=== PATIENT | female | born 1970 | race Caucasian/White ===

== ENCOUNTER 2020-03-27 14:30 | Outpatient (RCR) | payer OTHER, SELFPAY ==
--- NOTE | 2020-03-05 15:14 | PTOPEVAL ---
PHYSICAL THERAPY EVALUATION AND PLAN OF CARE 03-05-2020 Thank you for referring Skylar Muir to [facility] [place], for the diagnosis of R shoulder tendonitis.? She is scheduled to be seen for therapy? 2 x/week for 4 weeks. Please review, sign, date and return this plan of care ROSEANNA. I agree with and certify that the following plan of care is medically necessary. Referring Physician Date Attending Provider: Dr. 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 Cardiovascular History Hx Hypertension Yes: meds Respiratory History Hx Asthma Yes: rare flare ups Gastrointestinal History Hx Gastrointestinal Disorders No Significant History Genitourinary History Hx Genitourinary Disorders No Significant History Musculoskeletal History Hx Arthritis Yes: hands, back Hx Other Musculoskeletal Disorders Yes: R shoulder chronic pain;B achilles tendonitis; Hematological History Hx Hematological Disorders No Significant History Endocrine History Hx Diabetes Yes: pre- diabetic- monitoring HEENT History Hx HEENT Disorders No Significant History Integumentary History Hx Skin Disorders No Significant History Evaluation Information Problem Diagnosis R shoulder tendinopathy Onset 12-02-2019 Subjective Information gradual increase in shoulder Query Text:As Reported By Patient/ pain; pain is different than Family it was in the past; more weakness and more pain in triceps; previous PT here for shoulder; previous history of torn trapezius ; Diagnostic Tests X-Rays For This Problem No MRI For This Problem No Other Tests For This Problem No Previous Treatments Previous Treatments For This Problem for torn trapezious, over 1 year ago Prior Level of Function Activity Level (Last 3 Months) Occupation painter spray; custom framing- furlough due to COVID Hand Dominance Right Activity of Daily Living Ability Independent Indoor/Home Mobility Independent Community Mobility Independent Stairs Ability Independent Functional Cognition (Planning, Shopping Independent , Taking Medications) Cooking
--- NOTE | 2020-03-25 16:12 | PCPTNOTE ---
Patient did not show up for scheduled appointment this date. Called patient and she stated she lost track of time.
--- NOTE | 2020-04-15 13:50 | PCPTNOTE ---
Patient called & cancelled scheduled appointment this date due to covid concerns.
--- NOTE | 2020-04-15 16:27 | PCPTNOTE ---
Pt called and left message, returned her call---she is doing her HEP and fearful of COVID. Discussed continuing her HEP, stretching her ROM as tolerated--stated she does not have her ROM yet. Discussed after get ROM, then would work on strengthening. She stated she will continue to do her exercises and then when see in May, will get new orders if need to continue PT. She request d/c from PT at this time.
--- NOTE | 2020-04-17 14:04 | PCPTNOTE ---
PHYSICAL THERAPY DISCHARGE 04-17-2020 Attending Provider: Dr. Vicente Kaminski Patient:Skylar Muir Date of :1970 Ms. Muir has received 4 PT sessions, from March 05 to , for the diagnosis of R shoulder tendinitis. She called and I talked with her on 04-15-2020. She expressed concern about COVID and did not want to attend PT. She stated her shoulder is improving, with better motion, but still has a pinch and is weak. Discussed with her and reviewed her HEP, will continue with her HEP and using her arm as tolerated with home tasks. She requested discharge from PT at this time. Skylar reports she has a dr follow up appointment in May. If she still has issues with her shoulder, will get an additional order for PT. The goals were not assessed. Thank you for referring Tootie to [facility]. Please review, sign, date and return this discharge summary ROSEANNA. I have been updated about the patient's current status and I agree with discharge from the above service at this time. Referring Physician Date
== END 2020-04-18 15:31 | disposition home or self-care (01) ==
LOC: ANHPT 14:30
PROVIDERS: PCP Internal Medicine
DX: M75.81 Other shoulder lesions, right shoulder (principal)
CPT/HCPCS: 97110; 97140; 97161

== ENCOUNTER 2020-11-22 14:18 | Outpatient (CLI) | payer OTHER, SELFPAY ==
--- NOTE | ~2020-11-22 | XR_ITS ---
XR chest 2V DATE: 11/22/2020 14:39 INDICATION: Inhaled foreign body (bug) TECHNIQUE: PA and lateral views COMPARISON: None FINDINGS: Normal heart size. No hilar or mediastinal enlargement. No pulmonary infiltrate or consolid ation, pleural effusion or pulmonary vascular congestion or pneumothorax. IMPRESSION: Negative Reviewed, dictated and finalized at location A. IMPRESSION: Negative
== END 2020-11-22 14:19 | disposition home or self-care (01) ==
PROVIDERS: PCP Nurse Practitioner; Visit Provider Nurse Practitioner
DX: T17.808A Unspecified foreign body in other parts of respiratory tract causing other injury, initial encounter (principal)
CPT/HCPCS: 71046

== ENCOUNTER 2023-02-24 13:00 | Outpatient (RCR) | payer OTHER, SELFPAY ==
--- NOTE | 2023-01-20 16:00 | PTOPEVAL1 ---
Assessment and note entered by Derrick Cole Evaluation Information Assessment Status Evaluation Diagnosis left calf strain, dizziness Onset 12/31/22 Subjective Information Pt. reports a few weeks ago she was walking up her steps and felt a pop in the left calf. She reports that she was not functional for a few days , but has improved. She reports that pain can be throughout the calf and deep into the muscle. She reports having a hx of Achilles tendonitis. She reports that pain in the calf is only noticed with walking and standing. She reports that her calf pain is not immediate. She reports that the pain will increase with stairs and short distance walking. She reports that pain is tolerable when it does occur and is able to complete IADL's despite her pain. she reports that her dizziness has been on/off for the past several months. She has had therapy recently with some resolve noted with the [facility] [place]. Pt. reports that it has returned and notices a fullness in her head. She reports having a hx of migraines that may have been the cause of the dizziness. She reports that her ability to walk her dog or walk any signficant distance has been affected by her onset . Reported Pain Level Pain Score 2: Self Report Assessment PT Clinical Summary Pt. is a 52 year old female who enters the clinic with a left calf strain and dizziness. She has hx of BPPV and dizziness symptoms appear less apparent than her current calf pain. She currently presents with dizziness, impaired gait, impaired strength, impaired ROM and pain. Continued skilled PT is indicated in order to improve these areas to allow the pt. to to be able to participate in all IADL's with less pain and less dizziness. Plan of Care Interventions Electrical Stimulation,Gait Training,Hot Pack/Cold Pack,Manual Therapy,Neuro Re-education,Patient/ Caregiver Educati,Therapeutic Activities, Therapeutic Exercise,Self-Care/Home Management PT Services Indicated Yes Treatment Frequency and 2x/week x 10 visits Duration These treatments will address the objective and functional deficits as defined above. The patient will be advanced safely and appropriately in order for the patient to progress towards his/her prior level of function. Additional exercises will be introduced and as well as a comprehensive home exercise program upon discharge, if
--- NOTE | 2023-01-20 16:01 | OPREHPOC ---
Outpatient Therapy Plan of Care This is a Multidisciplinary Plan of Care that may contain components documented by all disciplines (PT, OT, and ST.) PT Problem 1 PT Problem #1 Knowledge Deficit PT Goal 1 Goal Pt. will be independent with a HEP addressing strength and mobility. Target Visit 2 PT Problem 2 PT Problem #2 Impaired Range of Motion PT Goal 1 Goal Pt. will present with 15 degrees active left ankle dorsiflexion with the knee extended. Target Visit 10 PT Problem 3 PT Problem #3 Impaired Gait PT Goal 1 Goal Pt. will present with no deviation in gait upon visual assessment. Target Visit 10 PT Problem 4 PT Problem #4 Impaired Vestibular Syste PT Goal 1 Goal Pt. will deny any episode of dizziness in a 1 week period Target Visit 8 PT Problem 5 PT Problem #5 Impaired Strength PT Goal 1 Goal Pt. will present with ability to complete 10 singel limb heel raises on the left and present with 5/5 bilateral hip abduction strength Target Visit 10
--- NOTE | 2023-02-04 13:27 | PCPTNOTE ---
Mrs. Muir called the clinic stating that she had transportation issues and could not attend treatment on this date.
--- NOTE | 2023-02-11 09:11 | PCPTNOTE ---
Pt cancelled due to illness today.
--- NOTE | 2023-02-15 09:52 | PCPTNOTE ---
Pt. canceled 02/15/23 appointment stating that she was sick.
--- NOTE | 2023-02-22 09:09 | PCPTNOTE ---
Pt. canceled 02/22/23 appointment noting that she is still sick again today.
--- NOTE | 2023-02-24 14:03 | PTOPDC ---
Assessment and note entered by Derrick Cole Discharge Information Assessment Status Evaluation Diagnosis left calf strain, dizziness Onset 12/31/22 Subjective Information Pt. reports that she is no longer experiencing dizziness. She reports that her pain is decreased and only mainly has pain with long periods of walking. She does express concern with going to the beach in the coming weeks, and is fearful that pain will increase with walking through the sand. Reported Pain Level Pain Score 2: Self Report Assessment PT Clinical Summary Pt. has demonstrated improvements in gait, pain reports, strength and ROM. At this time pt. is encouraged to continue with her HEP and will be discharged from our care. Plan of Care PT Services Indicated D/C from PT to an independent HEP
== END 2023-02-24 14:45 | disposition home or self-care (01) ==
LOC: ANHPT 13:00
PROVIDERS: PCP Nurse Practitioner; Visit Provider Orthopaedic Surgery
DX: M79.662 Pain in left lower leg (principal); R42 Dizziness and giddiness
CPT/HCPCS: 97014; 97110; 97112; 97140; 97161; 97530; G0283

== ENCOUNTER 2023-06-29 16:16 | Outpatient (CLI) | payer OTHER, SELFPAY ==
--- NOTE | ~2023-06-29 | US_ITS ---
EXAMINATION: US pelvic complete w TV DATE: 06/29/2023 17:41 INDICATION: Pelvic and perineal pain. TECHNIQUE: Multiple transabdominal and transvaginal sonographic images of the pelvis were obtained. COMPARISON: None. FINDINGS: TRANSABDOMINAL ULTRASOUND: The uterus measures 5.4 x 3.2 x 4.7 cm. There is no free fluid in the pelvis. TRANSVAGINAL ULTRASOUND: The endometrial complex measures 4 mm in thickness. There is a 2.5 cm subserosal fibroid. There is a small nabothian cyst in the cervix. The ovaries are not visualized. IMPRESSION: 1. Uterine fibroid. 2. Ovaries not visualized. Reviewed, dictated and finalized at location A. O COMPUTER DATA PROCESSOR
== END 2023-06-29 16:17 | disposition home or self-care (01) ==
PROVIDERS: PCP Nurse Practitioner; Visit Provider Nurse Practitioner Obstetrics & Gynecology
DX: R10.2 Pelvic and perineal pain (principal); D25.9 Leiomyoma of uterus, unspecified
CPT/HCPCS: 76830; 76856

== ENCOUNTER 2023-07-12 08:55 | Outpatient (CLI) | payer OTHER, SELFPAY ==
--- NOTE | ~2023-07-12 | US_ITS ---
Limited Abdominal Sonogram: Real-time sonographic imaging of the right upper quadrant was performed. Clinical History: Right upper quadrant pain Findings: The liver appears echogenic, with no evidence of mass lesion or bile duct dilatation. Main portal vein demonstrates normal direction of flow. The gallbladder is well distended, and appears no rmal with no evidence of gallstone or wall thickening. The common bile duct measures 4 mm. The visua lized pancreas, aorta, and IVC are unremarkable. Impression: Diffuse fatty infiltration of the liver. Reviewed, dictated and finalized at location M. Impression: Diffuse fatty infiltration of the liver.
== END 2023-07-12 08:56 | disposition home or self-care (01) ==
LOC: ANHIMG 08:58
PROVIDERS: PCP Nurse Practitioner; Visit Provider Nurse Practitioner
DX: R10.11 Right upper quadrant pain (principal); K76.0 Fatty (change of) liver, not elsewhere classified
CPT/HCPCS: 76705

== ENCOUNTER 2023-11-11 15:58 | Emergency (ER) | payer OTHER, SELFPAY ==
[2023-11-11] VITALS (10 sets, daily range): BP systolic 145–170; BP diastolic 80–102; PULSE 73–99; RESP 14–19; TEMP 36.8; O2SAT 98–99
--- NOTE | ~2023-11-11 | CT_ITS ---
EXAMINATION: CT brain wo con DATE: 11/11/2023 17:37 INDICATION: Dizziness. TECHNIQUE: Computed tomography (CT) of the head was performed without intravenous contrast. The mA wa s adjusted according to patient size. Iterative reconstruction technique was employed. The dose-lengt h product was 605.33 mGy-cm. COMPARISON: None FINDINGS: There is no intracranial hemorrhage, acute infarction, or abnormal intracranial mass lesion . The ventricles are normal in size. The paranasal sinuses are clear. The mastoid air cells are chapincito l. The orbits are normal. IMPRESSION: 1. Normal brain. Reviewed, dictated and finalized at location E. IMPRESSION: 1. Normal brain.
--- NOTE | ~2023-11-11 | XR_ITS ---
EXAMINATION: XR chest 2V DATE: 11/11/2023 17:31 INDICATION: Near syncope. TECHNIQUE: Frontal and lateral views of the chest were obtained. COMPARISON: Chest 2 views 11/22/2020 FINDINGS: There is no pneumonia, pleural effusion, or pneumothorax. The heart size is normal. IMPRESSION: 1. No acute cardiopulmonary disease. Reviewed, dictated and finalized at location E.
--- NOTE | 2023-11-11 16:54 | ECG_ITS ---
Test Date: 2023-11-11 17:06:55 Measurements Intervals [place] Rate: 81 P: 75 GA: 140 QRS: 1 QRSD: 80 T: 42 QT: 360 QTc: 418 Interpretive Statements SINUS RHYTHM WITH SINUS ARRHYTHMIA POSSIBLE LEFT ATRIAL ENLARGEMENT DELAYED PRECORDIAL R/S TRANSITION CONSIDER INFERIOR INFARCT, AGE INDETERMINATE ABNORMAL ECG No previous ECG available for comparison Electronically Signed On 11-11-2023 20:40:59 CDT by Vince Roldan D.O.
--- NOTE | 2023-11-11 17:22 | ED.GENADULT ---
HPI - General Adult General Chief complaint: Dizziness Stated complaint: dizzy Time Seen by Provider: 11/11/23 17:01 History of Present Illness HPI narrative: 52-year-old female presents em to the emergency department for an episode of increased head pressure and associated dizziness. patient states she was running her car when she had onset a flushed feeling that traveled up her back and patient states she also had some associated dizziness with this. Patient states that this did feel to similar sensation to a sensation she has had previously. Patient states that felt different than her vertigo. Patient states the symptoms have improved and upon arrival emergency department patient has no current dizziness. Patient denies any associated chest pain or shortness of breath. Related Data Allergies Allergy/AdvReac Type Severity Reaction Status Date / Time ciprofloxacin [From Cipro] AdvReac Cramping Verified 11/11/23 16:09 of the [facility] [place] Review of Systems Review of Systems: All systems reviewed & are unremarkable except as noted in HPI and below PMFSH Social History Social History Smoking status: Current every day smoker Alcohol intake: current Exam Narrative: APPEARANCE: Well appearing, no pain, no distress, well-nourished. HEAD: normocephalic, atraumatic. EYES: PERRLA/EOMI, conjunctivae clear. NOSE: Normal no drainage EARS:TMS clear with good light reflex. THROAT: Pharynx clear, no exudate. NECK: Supple. No adenopathy, no masses. RESPIRATORY: Airway patent, respirations nonlabored. Clear to auscultation bilaterally, no rales, rhonchi, wheezing. CARDIOVASCULAR: Regular rate and rhythm without murmurs rubs or gallops. ABDOMINAL: Soft, nontender, nondistended, normal bowel sounds MUSCULOSKELETAL: Moves all extremities. Strength/ROM intact, No edema, No calf tenderness. NEURO: Alert. Cranial nerves II through XII intact. Grossly intact SKIN: Warm, dry. Normal Color Course Vital Signs Vital signs: Vital Signs Temperature 98.3 F 11/11/23 16:03 Pulse Rate 83 11/11/23 16:03 Respiratory Rate 14 11/11/23 16:03 Pulse Oximetry 98 11/11/23 16:03 Oxygen Delivery Room Air 11/11/23 16:03 Temperature 98.3 F 11/11/23 16:03 Pulse Rate 73 11/11/23 19:05 Respiratory Rate 18 11/11/23 19:05 Blood Pressure 157/80 H 11/11/23 19:05 Pulse Oximetry 99 11/11/23 19:05 Oxygen Delivery Room Air 11/11/23 16:03 Medical Decision Making MDM Narrative Medical decision making narrative: 52-year-old female presents emergency department for evaluation for dizziness. Patient states the dizziness sensation has improved. Patient is suspecting that a component of this experience may have been anxiety related. Patient states she does have some intermittent shortness of breath but does have history of asthma. Patient is afebrile with no significant leukocytosis. Patient has no significant CMP abnormalities. Head CT was negative chest x-ray shows no acute cardiopulmonary abnormality. Patient declined any medication for vertigo control. Patient was updated the results of workup patient was comfortable the plan for discharge and close follow-up. Differential Diagnosis Differential Diagnosis: vertigo, CVA, TIA, orthostatic hypotension, anxiety, panic attack Vital Signs Vital Signs: Vital Signs Temperature 98.3 F 11/11/23 16:03 Pulse Rate 83 11/11/23 16:03 Respiratory Rate 14 11/11/23 16:03 Pulse Oximetry 98 11/11/23 16:03 Oxygen Delivery Room Air 11/11/23 16:03 Temperature 98.3 F 11/11/23 16:03 Pulse Rate 73 11/11/23 19:05 Respiratory Rate 18 11/11/23 19:05 Blood Pressure 157/80 H 11/11/23 19:05 Pulse Oximetry 99 11/11/23 19:05 Oxygen Delivery Room Air 11/11/23 16:03 Lab Data Lab results reviewed: Yes I reviewed the patient's lab results. 11/11/23 17:19 11/11/23 17:19 Labs: Lab Results 11/11/23 R
[2023-11-11 17:31] LABS: Basophils Percent Auto 0.4 % (0.2-1.2); Eosinophils Absolute Auto 0.1 K/mm3 (0-0.3); Eosinophils Percent Auto 0.6 % (0-4.4); Hematocrit 40.1 % (37.0-47.0); Hemoglobin 13.2 g/dL (12.0-15.0); Immature Granulocyte Absolute 0.04 K/mm3 (0.00-0.031); Immature Granulocyte Percent A 0.4 % (0-0.5); Lymphocytes Absolute Auto 1.64 K/mm3 (0.9-3.2); Lymphocytes Percent Auto 15.6 % (18.3-44.2); Mean Corpuscular HGB Conc 32.9 g/dl (32-36); Mean Corpuscular Volume 91.1 fl (80-100); Mean Platelet Volume 8.9 fl (7.4-10.4); Monocytes Absolute Auto 0.5 K/mm3 (0.1-0.6); Monocytes Percent Auto 4.8 % (2.6-8.5); Neutrophils Absolute Auto 8.2 K/mm3 (1.3-6.7); Neutrophils Percent Auto 78.2 % (45.5-73.1); Platelet Count Result 310 k/mm3 (150-375); Red Cell Distribution Width 13.9 % (11.5-14.5); White Blood Count 10.5 K/mm3 (4.5-10.0)
[2023-11-11 17:36] LABS: Alanine Aminotransferase 16 U/L (6-35); Albumin Level 4.1 g/dL (3.5-5.1); Alkaline Phosphatase 84 U/L (38-126); Anion Gap 8 mmol/L (4-12); Aspartate Amino Transferase 21 U/L (14-36); Bilirubin,Total 0.5 mg/dL (0.2-1.3); Blood Urea Nitrogen 10 mg/dL (7-17); Calcium 9.5 mg/dL (8.4-10.2); Carbon Dioxide 27 mmol/L (22-30); Chloride 102 mmol/L (98-107); Estimated CRCL calculation 107 ml/min; Estimated Glomerular Filt Rate > 60; Glucose 102 mg/dL (65-110); Potassium 3.8 mmol/L (3.4-5.0); Sodium 137 mmol/L (137-145)
== END 2023-11-11 19:06 | disposition home or self-care (01) ==
PROVIDERS: Emergency Provider Emergency Medicine; PCP Nurse Practitioner
DX: R42 Dizziness and giddiness (principal); F17.200 Nicotine dependence, unspecified, uncomplicated; R94.31 Abnormal electrocardiogram [ECG] [EKG]
CPT/HCPCS: 36415; 70450; 71046; 80053; 85025; 93005; 99284